=== PATIENT | female | born 1990 | race American Indian/Alaskan Native ===

== ENCOUNTER 2018-09-04 10:02 | Emergency (ER) | payer BC ==
[2018-09-04 10:14] VITALS: BP 127/70
--- NOTE | 2018-09-04 12:28 | Emergency Department Report ---
ED General Adult HPI - General Chief complaint: Skin/Abscess/Foreign Body Stated complaint: CYST Time Seen by Provider: 09/04/18 12:19 Source: patient Mode of arrival: Ambulatory Limitations: No Limitations - History of Present Illness Initial comments: Patient is a 28-year-old asthmatic female who has a area of swelling to the left buttock. Patient states there is some discomfort with sitting and walking. Patient denies fevers chills dysuria nausea vomiting diarrhea at this time. - Related Data Previous Rx's Medication Instructions Recorded Last Taken Type DOXYCYCLINE Hyclate [Vibramycin 100 mg PO Q12HR #14 capsule 09/04/18 Unknown Rx CAP] Ibuprofen [Motrin 800 MG tab] 800 mg PO Q8HR PRN #10 tablet 09/04/18 Unknown Rx traMADol [Ultram] 50 mg PO Q6HR PRN #12 tablet 09/04/18 Unknown Rx Allergies Allergy/AdvReac Type Severity Reaction Status Date / Time No Known Allergies Allergy Unverified 09/04/18 10:03 ED Review of Systems ROS: Stated complaint: CYST Other details as noted in HPI Comment: All other systems reviewed and negative ED Past Medical Hx - Past Medical History Previous Medical History?: No - Surgical History Past Surgical History?: No - Social History Smoking Status: Never Smoker Substance Use Type: None - Medications Home Medications: Home Medications Medication Instructions Recorded Confirmed Last Taken Type DOXYCYCLINE Hyclate [Vibramycin 100 mg PO Q12HR #14 capsule 09/04/18 Unknown Rx CAP] Ibuprofen [Motrin 800 MG tab] 800 mg PO Q8HR PRN #10 tablet 09/04/18 Unknown Rx traMADol [Ultram] 50 mg PO Q6HR PRN #12 tablet 09/04/18 Unknown Rx ED Physical Exam - General Limitations: No Limitations General appearance: alert, in no apparent distress - Head Head exam: Present: atraumatic, normocephalic - Eye Eye exam: Present: normal appearance - Skin Skin exam: Present: warm, dry, intact, other (patient is a very small approximately nickel-sized area of induration and swelling in the left buttock. There is no fluctuance.) ED Course Vital Signs 09/04/18 10:12 Temperature 98 F Pulse Rate 70 Respiratory 18 Rate Blood Pressure 127/70 [Left] O2 Sat by Pulse 99 Oximetry ED Medical Decision Making - Medical Decision Making Patient does have a very early cellulitis/abscess to left buttock. This is small enough that I do not believe that D would be indicated at this time. Patient started on antibiotics with warm compress. Critical care attestation.: If time is entered above; I have spent that time in minutes in the direct care of this critically ill patient, excluding procedure time. ED Disposition Clinical Impression: Cellulitis Qualifiers: Site of cellulitis: buttock Qualified Code(s): L03.317 - Cellulitis of buttock Disposition: DC- TO HOME OR SELFCARE Is pt being admited?: No Does the pt Need Aspirin: No Condition: Stable Instructions: Cellulitis (ED) Referrals: DANIELLE BOWSER MD [Primary Care Provider] - 3-5 Days Time of Disposition: 12:28
== END 2018-09-04 12:36 | disposition home or self-care (01) ==
LOC: ED 10:02
DX: L03.317 Cellulitis of buttock (principal)